=== PATIENT | female | born 2000 | race Caucasian/White ===

== ENCOUNTER 2021-04-02 22:15 | Observation (INO) ==
[2021-04-02] MEDS ORDERED: Ondansetron 4 MG/2 ML VIAL IVP PRN (23:10)
[2021-04-02] MEDS ORDERED: Ondansetron 4 MG/2 ML VIAL ONE ×2 (23:10→23:21)
[2021-04-02] MEDS ORDERED: 0.9 % Sodium Chloride 1,000 ML IV ONE (23:10)
[2021-04-02] MEDS ORDERED: 0.9 % Sodium Chloride 1,000 ML ONE (23:11)
[2021-04-02] MEDS ORDERED: *HR* Midazolam HCl 2 MG/2 ML VIAL ONE (23:21)
[2021-04-02] MEDS ORDERED: *HR* Rocuronium Bromide 50 MG/5 ML VIAL ONE (23:21)
[2021-04-02] MEDS ORDERED: *HR* FentaNYL (PF) 100 MCG/2 ML VIAL ONE (23:21)
[2021-04-02] MEDS ORDERED: Lidocaine HCL 4 ML Topical Solution (Laryng-O-Jet Kit Sterile Pak) TP ONE (23:21)
[2021-04-02] MEDS ORDERED: *HR* Succinylcholine 200 MG/10 ML VIAL IVP ONE (23:21)
[2021-04-02] MEDS ORDERED: Lidocaine -MPF 2% 5 ML VIAL ONE (23:21)
[2021-04-02] MEDS ORDERED: *HR* Propofol 200 MG/20 ML VIAL IVP ONE (23:21)
[2021-04-02] MEDS ORDERED: *HR* HYDROmorphone PF 0.5 MG/0.5 ML SYRINGE IVP PRN (23:28)
[2021-04-02] MEDS ORDERED: Promethazine 6.25 MG in Water for inj. (sterile) 20 ML IVPB PRN (23:28)
[2021-04-02] MEDS ORDERED: *HR* FentaNYL (PF) 100 MCG/2 ML VIAL IVP PRN (23:28)
[2021-04-02 23:33] LABS: Basophils # 0.1 K/mcL (0.0-0.2); Basophils % 0.3 %; Eosinophils # 0.2 K/mcL (0.0-0.6); Hematocrit 36.9 % (35.3-44.9); Hemoglobin 11.9 g/dL (11.5-15.4); Immature Granulocytes % 0.4 % (0-4); Mean Corpuscular HGB Conc 32.2 g/dL (31.6-35.5); Mean Corpuscular Hemoglobin 27.9 pg (28.0-33.3); Mean Corpuscular Volume 86.4 fL (83.0-100.0); Mean Platelet Volume 9.1 fL (9.4-12.4); Monocytes # 0.6 K/mcL (0.0-1.3); Monocytes % 3.6 %; Platelet Count 386 K/mcL (140-400); Red Blood Count 4.27 M/mcL (3.82-4.97); Red Cell Distribution Width 12.8 % (11.5-14.5); Segmented Neutrophils % 56.7 %; White Blood Count 15.8 K/mcL (4.3-11.1)
[2021-04-02 23:37] LABS: INR 1.1
[2021-04-02 23:39] LABS: Activated Partial Thrombo Time 36.4 Seconds (26.0-36.0)
[2021-04-02 23:48] LABS: BUN/Creatinine Ratio 28 (6-26); Blood Urea Nitrogen 19 mg/dL (6-20); Calcium 9.3 mg/dL (8.6-10.3); Carbon Dioxide 21 mEq/L (23-29); Chloride 106 mEq/L (98-107); Glucose 107 mg/dL (70-105); Osmolality,Calculated 289 (280-300); Potassium 3.6 mEq/L (3.5-5.1); Sodium 138 mEq/L (136-145); eGFR For African Americans > 60 (> 60); eGFR For Non-African Americans > 60 (> 60)
[2021-04-03] MEDS ORDERED: Acetaminophen IV 1,000 MG/100 ML BAG IVPB ONE (00:16)
[2021-04-03] MEDS ORDERED: Famotidine 20 MG/2 ML VIAL ONE (00:16)
[2021-04-03] MEDS ORDERED: *HR* HYDROcodone/Acet 7.5/325 mg TABLET PO PRN (00:27)
[2021-04-03] MEDS ORDERED: *HR* FentaNYL (PF) 100 MCG/2 ML VIAL ONE (00:33)
[2021-04-03] MEDS ORDERED: Ondansetron ODT 4 MG TAB.RAPDIS SL PRN (00:57)
[2021-04-03 09:03] VITALS: O2SAT 98
[2021-04-03 12:04] VITALS: BP 106/67; PULSE 87; TEMP 98.3
== END 2021-04-03 15:58 | disposition home or self-care (01) ==
LOC: EMEROOARM 22:15 → 3BNU 22:15
PROVIDERS: ADMIT Otolaryngology; ATTEND Otolaryngology